=== PATIENT | male | born 1980 | race Two or more races ===

== ENCOUNTER 2017-10-20 13:52 | Emergency (ER) | payer OTHER ==
[~2017-10-20] VITALS: Ht 175.3 cm; Wt 76.2 kg
== END 2017-10-20 18:14 | disposition home or self-care (01) ==
LOC: ER 13:52
DX: J11.1 Influenza due to unidentified influenza virus with other respiratory manifestations (principal); B34.9 Viral infection, unspecified

== ENCOUNTER 2023-09-20 15:30 | Outpatient (CLI) | payer OTHER | END 2023-09-20 15:33 | disposition home or self-care (01) | LOC: SONOGRAMA 15:30 | PROVIDERS: ATTEND Pathology Anatomic Pathology & Clinical Pathology | DX: R22.1 Localized swelling, mass and lump, neck (principal); R59.0 Localized enlarged lymph nodes ==